=== PATIENT | male | born 1990 | race Caucasian/White ===

== ENCOUNTER 2020-05-27 23:42 | Emergency (ER) | payer OTHER ==
[~2020-05-27] VITALS: Ht 167.6 cm; Wt 78.9 kg
[~2020-05-27 23:42] MED LIST: CEPH500 PO; CRUTCH3 USE; HYDACE5 PO; NAPR375 PO; NAPR500 PO; PROM25 PO; RXTRAM50 PO
== END 2020-05-28 01:23 | disposition home or self-care (01) ==
LOC: ER 23:42
DX: H15.101 Unspecified episcleritis, right eye (principal); F17.210 Nicotine dependence, cigarettes, uncomplicated
CPT/HCPCS: 99283

== ENCOUNTER 2023-01-30 16:08 | Emergency (ER) | payer OTHER ==
[~2023-01-30] VITALS: Ht 172.7 cm; Wt 76.2 kg
[2023-01-30 16:16] VITALS: BP 123/79
== END 2023-01-30 18:01 | disposition home or self-care (01) ==
LOC: ER 16:08
DX: M79.641 Pain in right hand (principal); M25.531 Pain in right wrist; F17.210 Nicotine dependence, cigarettes, uncomplicated
CPT/HCPCS: 73130; 90714; J1885

== ENCOUNTER 2025-04-12 23:24 | Emergency (ER) | payer OTHER ==
[~2025-04-12] VITALS: Ht 172.7 cm; Wt 83.9 kg
[2025-04-12 23:41] VITALS: BP 136/81
[2025-04-13] MEDS ORDERED: Ketorolac Tromethamine 15mg Vial IM ONE (00:35)
[2025-04-13] MEDS ORDERED: IBUP600 PO (01:27)
[2025-04-13] MEDS ORDERED: ACET500 PO (01:27)
== END 2025-04-13 01:53 | disposition home or self-care (01) ==
LOC: ER 23:24
DX: M25.562 Pain in left knee (principal); J34.89 Other specified disorders of nose and nasal sinuses; F17.210 Nicotine dependence, cigarettes, uncomplicated
CPT/HCPCS: 73562-LT; 96372; 99283; J1885

== ENCOUNTER 2025-05-28 20:21 | Emergency (ER) | payer OTHER ==
[~2025-05-28] VITALS: Ht 172.7 cm; Wt 83.9 kg
[~2025-05-28 20:21] MED LIST changes: +ACET500 PO; +IBUP600 PO
[2025-05-28 22:55] LABS: BASOPHILS ABSOLUTE AUTO 0.12 K/mm3 (0.00-0.23); BASOPHILS PERCENT AUTO 1 % (0-2); EOSINOPHILS ABSOLUTE AUTO 0.26 K/mm3 (0.00-0.68); EOSINOPHILS PERCENT AUTO 2 % (0-6); Hematocrit 45.7 % (37.0-53.0); Hemoglobin 15.3 g/dL (13.5-17.5); IMMATURE GRAN ABSOLUTE AUTO 0.15 K/mm3 (0.00-0.10); IMMATURE GRAN PERCENT AUTO 1 % (0-1); LYMPHOCYTES ABSOLUTE AUTO 3.68 K/mm3 (0.84-5.20); LYMPHOCYTES PERCENT AUTO 23 % (21-46); MONOCYTES ABSOLUTE AUTO 1.38 K/mm3 (0.16-1.47); MONOCYTES PERCENT AUTO 9 % (4-13); Mean Corpuscular HGB Conc 33.5 g/dL (31.5-36.5); Mean Corpuscular Volume 85 fL (80-100); NEUTROPHILS ABSOLUTE AUTO 10.34 K/mm3 (1.96-9.15); NEUTROPHILS PERCENT AUTO 65 % (41-73); NRBC ABSOLUTE 0.00 K/mm3 (0.00-0.02); NRBC Auto 0.0 /100 WBC (0.0-0.2); Platelet Count 403 K/mm3 (150-400); RDW Coefficient Variation 12.5 % (11.7-14.2); RDW Standard Deviation 38.9 fL (35.1-46.3)
[2025-05-28 23:18] LABS: Alanine Aminotransfer (ALT/SGP 22.0 U/L (12-78); Albumin, Blood 4.1 g/dL (3.4-5.0); Albumin/Globulin Ratio 1.0 (0.8-1.8); Anion Gap 8.0 mmol/L (3-11); Aspartate Aminotrans (AST/SGOT 15.0 U/L (12-37); Bilirubin, Total 0.4 mg/dL (0.1-1.0); Blood Urea Nitrogen 8.0 mg/dL (8-24); CO2, Blood 27.0 mmol/L (21-32); Calcium, Blood 8.7 mg/dL (8.5-10.1); Chloride, Blood 105.0 mmol/L (98-108); Creatinine, Blood 0.88 mg/dL (0.60-1.20); Globulin, Blood 4.3 g/dL (2.2-4.0); Glucose, Blood 87.0 mg/dL (70-99); Potassium, Blood 3.9 mmol/L (3.5-5.5); Sodium, Blood 136.0 mmol/L (136-145); Total Protein, Blood 8.4 g/dL (6.4-8.2)
[2025-05-29] MEDS ORDERED: Ampicillin Sod/Sulbactam Sod 3 GM in NS 100 ML IV ONE (02:05)
[2025-05-29] MEDS ORDERED: AMOCLA875 PO (02:06)
[2025-05-29 02:46] VITALS: BP 112/84
== END 2025-05-29 02:48 | disposition home or self-care (01) ==
LOC: ER 20:21
PROVIDERS: Student in an Organized Health Care Education/Training Program
DX: L02.11 Cutaneous abscess of neck (principal); F17.210 Nicotine dependence, cigarettes, uncomplicated
CPT/HCPCS: 70491; 80053; 83605; 85025; 85730; 96374-59; 99284-25; J0295; Q9967